=== PATIENT | male | born 1955 | race Caucasian/White ===

== ENCOUNTER 2024-09-11 09:46 | Emergency (ER) | payer OTHER ==
[~2024-09-11] VITALS: Ht 182.9 cm; Wt 96.0 kg
[2024-09-11] VITALS (13 sets, daily range): BP systolic 124–141; BP diastolic 70–86
[~2024-09-11 09:46] MED LIST: HYDROCHLORO25 MG/TAB PO
[2024-09-11] MEDS ORDERED: ASPIRIN 81 MG/TAB PO ONE (09:55)
[2024-09-11 10:20] LABS: BASO% 0.7 % (0-3); EOS% 2.5 % (0-8); IMMATURE GRANULOCYTES 0.3 % (0.0-5.0); LYMPH% 16.5 % (15-41); MEAN CELL VOLUME 91.7 fL CALC (80.0-100.0); MEAN CORPUSCULAR HGB 31.4 pG CALC (26.0-32.0); MEAN CORPUSCULAR HGB CONC 34.2 g/dL CAL (32.0-36.0); MONO% 9.2 % (2-13); NEUT# 4.26 thou/uL (1.82-7.42); NEUT% 70.8 % (42-76); RED BLOOD COUNT 4.72 mill/uL (4.70-6.10); RED CELL DISTRI WIDTH 11.7 % (11.5-15.5)
[2024-09-11 10:23] LABS: HEMATOCRIT 43.3 % (39.0-50.0); HEMOGLOBIN 14.8 g/dl (14.0-18.0)
[2024-09-11 10:41] LABS: ALKALINE PHOSPHATASE 73 u/l (38-126); ANION GAP 13 (6-22 (CALC)); BUN 12 mg/dL (8-23); BUN/CREATININE RATIO 14 (12-20 (CALC)); CARBON DIOXIDE 25 mmol/l (22-30); CHLORIDE 106 mmol/l (95-108); CREATININE 0.8 mg/dL (0.7-1.3); ESTIMATED GFR 96 ML/MIN (>=90 (CALC)); POTASSIUM 3.9 mmol/l (3.5-5.1); SGOT/AST 33 u/l (19-48); SODIUM 140 mmol/l (137-146); TOTAL PROTEIN 7.2 g/dL (6.3-8.2)
[2024-09-11 10:46] LABS: ALBUMIN 4.4 g/dL (3.2-5.0); BILIRUBIN, TOTAL 0.9 mg/dL (0.2-1.3)
[2024-09-11] MEDS ORDERED: ZPAK PO (13:19)
== END 2024-09-11 13:24 | disposition left against medical advice (07) | DRG 313 ==
LOC: ED 09:46
PROVIDERS: Family Medicine
DX: R07.9 Chest pain, unspecified (principal); Z53.29 Procedure and treatment not carried out because of patient's decision for other reasons